=== PATIENT | female | born 1985 | race Caucasian/White ===

== ENCOUNTER → 2019-02-02 10:47 | Outpatient (CLI) | payer MEDICAID, SELFPAY ==
[2019-02-02 13:16] LABS: Glucose 93 mg/dL (74-106)
== END ==
PROVIDERS: Referring Provider Urology; Visit Provider Urology
DX: R81 Glycosuria (principal)
CPT/HCPCS: 36415; 82947

== ENCOUNTER 2019-03-18 10:50 | Day surgery (SDC) | payer MEDICAID, SELFPAY ==
[2019-03-18] VITALS (8 sets, daily range): BP systolic 114–137; BP diastolic 75–86; PULSE 55–66; RESP 15–16; TEMP 36.2–36.6; O2SAT 93–100; BMI 27.6
[2019-03-18 11:16] LABS: Internal QC Validated? YES +Cl - CLEAR BKGD; Pregnancy, Urine Negative Negative
[2019-03-18] MEDS: Lactated Ringers 1,000 ML 100 ML IV ×2 (11:23→14:30)
[2019-03-18] MEDS: Lubricating Jelly 60 GM Tube 30 GM TOPICAL (12:24)
[2019-03-18] MEDS: Cefazolin 2 GM in 0.9% Normal Saline 100 ML IV (12:42)
--- NOTE | 2019-03-18 12:43 | DCINST_ITS ---
Discharge Diet: No Restrictions Discharge Activity: May not drive while taking narcotic pain medications. May resume sexual activity in: 2 weeks Call your doctor if you observe: Fever of 101 or Higher, Inability to urinate, Shortness of breath, Chest pain, Calf discomfort, Uncontrolled pain Allergies/Adverse Reactions: Allergies No Known Allergies Allergy (Verified 03/18/19 11:00) Medications to take at Discharge Cephalexin [Keflex] 500 mg PO Q6 03/16/19 Ibuprofen 400 mg PO Q6H PRN 03/16/19 Oxycodone HCl/Acetaminophen [Percocet 5/325] 1 tab PO Q6H PRN PRN 03/16/19 No122/Iron/Folic Acid [ Multi Tablet] 1 ea PO DAILY 03/16/19 Primary Care Physician: Care Physician,No Primary [Primary Care Provider] - Test Results: Test results from this visit will be discussed in further detail at your follow- up appointment, if applicable. Please Follow Up With: Saba Corrales MD When: call office for appt Proposed Discharge Date: 03/18/19
--- NOTE | 2019-03-18 12:44 | OP.PCM_ITS ---
Problem List (1) Left ureteral calculus Status: Acute (2) Right renal stone Status: Acute Report of Operation Date of Procedure: 03/18/19 Pre-Operative Diagnosis: left ureteral stone, right renal stone Post-Operative Diagnosis: same Surgery/Procedure Performed:: cystoscopy, bilateral retrograde pyelograms, Description of Surgical Findings:: The stone from the left side was found resting in the urinary bladder upon entry with a cystoscope. On retrograde pyelogram the right side was found to be obstructed with a stone in the mid ureter. A right ureteral stent was inserted as I was unable to gain access to the mid ureter secondary to ureteral narrowing. Type of Anesthesia:: General Description of Procedure: The patient is a 34-year-old female who has had a known right renal calculus ureter out her with hydronephrosis. She developed acute onset severe left-sided flank pain and was evaluated in the emergency room. On CT scan, a left proximal ureteral calculus was identified in addition to the known right- sided nephrolithiasis. As the stone did not pass, she now presents for definitive surgical intervention. Informed consent was obtained. She was taken to the operating room placed on the operating room table. Anesthesia monitored the head, neck, airway, IV access and vital signs throughout the case. Once anesthesia was appropriately administered the patient was placed into dorsal lithotomy position and was prepped and draped in usual sterile fashion. A cystourethroscopy revealed no evidence of abnormality of the bladder or urethral mucosa. There were no masses, ulcerations, areas of erythema identified. At this time an 8 American cone-tip catheter was used to cannulate the patient's distal right ureter and a retrograde pyelogram was performed under fluoroscopic visualization. The distal ureter had a filling defect consistent with a stone approximately 3 to 4 mm in size. Above this area the ureter was dilated to the point I was unable to fill the renal pelvis with contrast easily. At this time I started to cannulate the patient's left ureteral orifice, and an extremely strong ureteral jet was observed. The stone was identified laying on the floor of the bladder. At this time attention rent was turned towards the right ureteral obstruction and 8.035 Glidewire was passed into the renal pelvis. A second wire was then passed and the flexible ureteroscope was passed over this wire. I cannot gain access to the mid ureter as there is a narrowing of her distal ureter. A 6 American 26 cm double-J stent was passed over the wire without difficulty. Good positioning was obtained in the renal pelvis as well as the urinary bladder. Patient's bladder was emptied and the case was terminated. The patient tolerated the procedure well and was taken to the recovery room in good condition. Grafts/Implants Used: JJ stent - Complications None - Admit VTE Documentation VTE Present on Admission: Yes VTE Mechan Device Prophylaxis: SCD's VTE Pharm Prophylaxis ordered?: No Reason prophylaxis not ordered:: Treatment Not Indicated
== END 2019-03-18 15:43 | disposition home or self-care (01) ==
LOC: SDC 10:51 → AC 10:52
PROVIDERS: Anesthesiology; Referring Provider Urology; Visit Provider Urology
PROC: 0TJ98ZZ Inspection of Ureter, Via Natural or Artificial Opening Endoscopic (ICD-10-PCS; CPT 52352; principal; 2019-03-18 12:20)
DX: N13.2 Hydronephrosis with renal and ureteral calculous obstruction (principal); N39.0 Urinary tract infection, site not specified; J45.909 Unspecified asthma, uncomplicated; Z87.442 Personal history of urinary calculi
CPT/HCPCS: 52332; 76000; 81025; J7120; C2617; J2405

== ENCOUNTER 2019-03-30 13:43 | Day surgery (SDC) | payer MEDICAID, SELFPAY ==
[2019-03-18 11:09] VITALS: BMI 27.6
[2019-03-30 14:05] LABS: Color, Urine Yellow (Yellow); Glucose, Dipstick Normal (Normal); Ketone-Dipstick Negative (Negative); Leukocyte Esterase-Dipstick 500 /ul (Negative); Nitrite-Dipstick Positive (Negative); Occult Blood-Urine 50 /ul (Negative); Protein-Dipstick 30 mg/dl (Negative); Specific Gravity, Urine 1.015 (1.002-1.030); Urine Bilirubin Dipstick 1 mg/dL (Negative); Urine Clarity Sl. Cloudy (Clear); Urine Urobilinogen 1 mg/dl (Normal)
[2019-03-30 14:07] LABS: Internal QC Validated? YES +Cl - CLEAR BKGD; Mucous, Urine 0 SEEN /hpf (<or=2+); Pregnancy, Urine Negative Negative
[2019-03-30 14:10] LABS: Bacteria RARE /hpf (None Seen); Red Blood Cells-Urine 0-5 SEEN /hpf (0-5); Squamous Epithelial Cells - UA 5-10 SEEN /hpf (5-10); White Blood Cells 25-50 SEEN /hpf (0-5)
[2019-03-30 14:24] VITALS: PULSE 74; RESP 16; TEMP 36.3; O2SAT 99; BMI 26.9
[2019-03-30] MEDS: Lactated Ringers 1,000 ML 100 ML IV (14:54)
[2019-03-30] MEDS: Cefazolin 2 GM in 0.9% Normal Saline 100 ML IV (16:15)
--- NOTE | 2019-03-30 16:23 | OP.PCM_ITS ---
Problem List (1) Right renal stone Status: Acute Report of Operation Date of Procedure: 03/30/19 Pre-Operative Diagnosis: right renal calculus Post-Operative Diagnosis: same Surgery/Procedure Performed:: cystoscopy, right ureteroscopy, holmium laser lithotripsy, right ureteral stent change Type of Anesthesia:: General Specimen's removed: stone fragments Description of Procedure: The patient is a 34-year-old female with a known right renal pelvic calculus approximately 8 mm in size. She underwent a right ureteral stent insertion appr oximately 2 weeks ago, I was unable to obtain access to the renal pelvis using the ureteroscope secondary to ureteral kinking and narrowing. After discussing the risk benefits and alternatives, informed consent was obtained and she agreed to proceed with intervention for her stone. She was taken to the operating room and placed on the operating room table. Anesthesia monitored the head, neck, airway, IV access and vital signs throughout the case. Once anesthesia was appropriately administered, the patient was placed into dorsal lithotomy position and was prepped and draped in usual sterile fashion. A cystourethroscopy revealed good positioning of her right ureteral stent. A 0.035 Glidewire was passed alongside the stent which was then removed with graspers. A second wire was placed without difficulty and used for insertion of a ureteral reaccess sheath which was done under fluoroscopic visualization. This time flexible ureteroscopy was performed and the stone was identified. It was lasered into small fragments which were then basket retrieved. The stone was very hard matrix. There were other stone fragments beginning to develop that were visualized behind the papillae. After removal of the stone fragments which were sent for analysis, using direct visualization, the ureteral reaccessed sheath was removed. There were no injuries to the ureter. A 6 Portuguese 24 cm double-J stent was then inserted over the guidewire with good curling in the renal pelvis as well as the urinary bladder. The bladder was then emptied and the case was terminated. The patient was taken to the recovery room in good condition. There were no complications during the procedure. Grafts/Implants Used: 6x24 JJ stent - Complications None - Admit VTE Documentation VTE Present on Admission: Yes VTE Mechan Device Prophylaxis: SCD's VTE Pharm Prophylaxis ordered?: No Reason prophylaxis not ordered:: Treatment Not Indicated
--- NOTE | 2019-03-30 16:24 | DCINST_ITS ---
Discharge Diet: No Restrictions Discharge Activity: May not drive while taking narcotic pain medications., May Shower May resume sexual activity in: 2 weeks Call your doctor if you observe: Fever of 101 or Higher, Inability to urinate, Inability to have a bowel movement, Shortness of breath, Chest pain, Calf discomfort, Uncontrolled pain Additional Instructions: take keflex 500mg twice a day for the next 3 days then stop Allergies/Adverse Reactions: Allergies No Known Allergies Allergy (Verified 03/29/19 09:47) Medications to take at Discharge Ibuprofen 400 mg PO Q6H PRN 03/16/19 No122/Iron/Folic Acid [ Multi Tablet] 1 ea PO DAILY 03/16/19 Cephalexin [Keflex] 250 mg PO Q8 03/29/19 Phenazopyridine HCl [Pyridium] 200 mg PO PRN PRN 03/29/19 Orders to be completed after discharge: ,Urine Time Frame: 03/30/19, Facility: [facility], Location: Laboratory Primary Care Physician: Care Physician,No Primary [Primary Care Provider] - Test Results: Test results from this visit will be discussed in further detail at your follow- up appointment, if applicable. Please Follow Up With: Saba Corrales MD When: call for appt to have stent removed this week
[2019-03-30 17:52] VITALS: BP 126/75; BP 130/78; PULSE 61; RESP 18; TEMP 36.2; O2SAT 95
[2019-03-30 18:00] VITALS: BP 124/77; BP 130/78; PULSE 62; RESP 18; O2SAT 96
[2019-03-30 18:15] VITALS: BP 130/78; BP 132/95; PULSE 62; RESP 18; O2SAT 94
[2019-03-30 18:29] VITALS: BP 130/78; BP 130/87; PULSE 62; RESP 18; TEMP 36.3; O2SAT 97
[2019-03-30 19:28] VITALS: BP 130/78
[2019-04-07 14:56] LABS: Ca Oxalate, Dihydrate 20 % (.); Ca Oxalate, Monohydrate 75 % (.)
[2019-04-07 15:40] LABS: Comment Note: (.)
== END 2019-03-30 19:29 | disposition home or self-care (01) ==
LOC: SDC 13:43 → AC 13:44
PROVIDERS: Referring Provider Urology; Visit Provider Urology
PROC: (CPT 52353; principal; 2019-03-30 15:30)
DX: N13.2 Hydronephrosis with renal and ureteral calculous obstruction (principal); N39.0 Urinary tract infection, site not specified; J45.909 Unspecified asthma, uncomplicated; Z87.442 Personal history of urinary calculi; Z87.891 Personal history of nicotine dependence
CPT/HCPCS: 52356; 76000; 81001; 81025; 82360; J7120; C1769; C2617; J2405